=== PATIENT | female | born 1990 | race Caucasian/White ===

== ENCOUNTER 2018-10-24 22:51 | Emergency (ER) | payer OTHER ==
[~2018-10-24] VITALS: Ht 162.6 cm; Wt 49.9 kg
[~2018-10-24 22:51] MED LIST: PEPCID40 MG PO; ZOFRAN ODT4 MG PO
[2018-10-25] MEDS ORDERED: KETO10TA2 PO (01:09)
[2018-10-25] MEDS ORDERED: AMOX-CLAV 875-1 EACH PO (01:09)
[2018-10-25] MEDS ORDERED: ORPHENADRINE C100 MG PO (01:09)
== END 2018-10-25 01:36 | disposition home or self-care (01) ==
LOC: ER 22:51
DX: M62.838 Other muscle spasm (principal); J31.2 Chronic pharyngitis

== ENCOUNTER → 2019-05-05 | Emergency (ER) | payer OTHER ==
[~2019-05-05] VITALS: Ht 157.5 cm; Wt 50.8 kg
[~2019-05-05] MED LIST changes: +AMOX-CLAV 875-1 EACH PO; +ANTICONCEPTIVAS; +CARAFATE1 GM PO; +KETO10TA2 PO; +ORPHENADRINE C100 MG PO; +PEPCID AC20 MG PO
== END | disposition home or self-care (01) ==
LOC: ER 21:29
DX: K29.70 Gastritis, unspecified, without bleeding (principal)

== ENCOUNTER 2020-10-10 09:25 | Emergency (ER) | payer OTHER ==
[~2020-10-10] VITALS: Ht 165.1 cm; Wt 51.3 kg
== END 2020-10-10 10:53 | disposition home or self-care (01) ==
LOC: ER 09:25
DX: R51.9 Headache, unspecified (principal); F41.8 Other specified anxiety disorders

== ENCOUNTER 2022-05-03 09:26 | Inpatient (IN) | payer OTHER ==
[~2022-05-03] VITALS: Ht 162.6 cm; Wt 3.6 kg
[2022-05-04] MEDS ORDERED: PROFERRIN-FORT1 EACH (11:34)
== END 2022-05-06 14:49 | disposition home or self-care (01) | DRG 788 ==
LOC: LDR 09:26 → OB/GYN 09:26
PROVIDERS: ADMIT Obstetrics & Gynecology; ATTEND Obstetrics & Gynecology
PROC: 4A1HXCZ Monitoring of Products of Conception, Cardiac Rate, External Approach (ICD-10-PCS; 2022-05-03)
PROC: 10D00Z1 Extraction of Products of Conception, Low, Open Approach (ICD-10-PCS; principal; 2022-05-03 13:45)
DX: O32.8XX0 Maternal care for other malpresentation of fetus, not applicable or unspecified (principal); Z3A.39 39 weeks gestation of pregnancy; Z37.0 Single live birth; Z20.822 Contact with and (suspected) exposure to COVID-19

== ENCOUNTER 2022-05-12 23:26 | Emergency (ER) | payer OTHER ==
[~2022-05-12] VITALS: Ht 236.2 cm; Wt 67.6 kg
[~2022-05-12 23:26] MED LIST changes: +PROFERRIN-FORT1 EACH
[2022-05-13] MEDS ORDERED: AMOX1TAB5 PO (04:45)
[2022-05-13] MEDS ORDERED: INTESTINEX680 M1 PO (04:45)
[2022-05-13] MEDS ORDERED: PAIN RELIEVER500 MG PO (04:45)
[2022-05-13] MEDS ORDERED: PEPCID AC20 MG PO (04:45)
== END 2022-05-13 05:18 | disposition home or self-care (01) ==
LOC: ER 23:26
DX: N73.9 Female pelvic inflammatory disease, unspecified (principal); L76.82 Other postprocedural complications of skin and subcutaneous tissue; O90.9 Complication of the puerperium, unspecified

== ENCOUNTER 2023-08-16 21:30 | Emergency (ER) | payer OTHER ==
[~2023-08-16] VITALS: Ht 160 cm; Wt 51.7 kg
[~2023-08-16 21:30] MED LIST changes: +AMOX1TAB5 PO; +INTESTINEX680 M1 PO; +PAIN RELIEVER500 MG PO
[2023-08-16] MEDS ORDERED: CAMILA0.35 MG (22:17)
[2023-08-16] MEDS ORDERED: 0.9 % SODIUM CHLORIDE 1,000 ML IV SCH (23:00)
[2023-08-16 23:57] LABS: HEMATOCRIT 37.5 % (36.0-45.00); HEMOGLOBIN 12.9 g/dL (12.0-15.00); MEAN CORPUSCULAR HEMOGLOBIN 29.5 pg (27.00-32.0); MEAN CORPUSCULAR HGB CONC 34.3 g/dl (32.0-36.0); PLATELET COUNT 237 K/uL (150-450); RED BLOOD COUNT 4.36 M/uL (4.00-6.00); RED CELL DISTRIBUTION WIDTH 12.7 % (11.5-14.5)
[2023-08-17 00:17] LABS: ALBUMIN 3.7 gm/dL (3.4-5.0); BILIRUBIN TOTAL 0.3 mg/dL (0.3-1.2); CALCIUM 9.4 mg/dL (8.5-10.1); CREATININE SERUM 0.59 mg/dL (0.55-1.02); GFR 118.88; GLOBULINA 3.3 G/DL (2.4-3.5); POTASSIUM 3.85 mEq/L (3.5-5.1)
== END 2023-08-17 03:07 | disposition home or self-care (01) ==
LOC: ER 21:30
PROVIDERS: General Practice
DX: R10.2 Pelvic and perineal pain (principal); Z91.018 Allergy to other foods; N83.202 Unspecified ovarian cyst, left side; N20.0 Calculus of kidney

== ENCOUNTER 2024-04-05 06:41 | Emergency (ER) | payer OTHER ==
[~2024-04-05] VITALS: Ht 160 cm; Wt 51.7 kg
[~2024-04-05 06:41] MED LIST changes: +CAMILA0.35 MG
[2024-04-05 08:29] LABS: URINE APPEARANCE Clear; URINE BILIRRUBIN Negative (NEGATIVE); URINE BLOOD Negative; URINE COLOR Yellow; URINE GLUCOSE Negative (NEGATIVE); URINE KETONE Negative (NEGATIVE); URINE LEUKOCYTE Negative; URINE NITRATE Negative; URINE PROTEIN Negative (NEGATIVE); URINE UROBILINOGEN 0.2 E.U./dl
[2024-04-05 08:32] LABS: URINE BACTERIA 124.7 uL (0.0-1933); URINE EPITHELIAL CELLS 15.1 uL (0.0-38.8); URINE RBC 36.7 uL (0.0-20.8); URINE WBC 12.6 uL (0.0-23.2)
[2024-04-05 08:40] LABS: HEMOGLOBIN 13.9 g/dL (12.0-15.00); MEAN CELL VOLUME 87.2 fL (80.00-100.00); MEAN CORPUSCULAR HEMOGLOBIN 29.5 pg (27.00-32.0); MEAN CORPUSCULAR HGB CONC 33.9 g/dl (32.0-36.0); PLATELET COUNT 225 K/uL (150-450)
[2024-04-05 08:53] LABS: ALBUMIN 4.1 gm/dL (3.4-5.0); ALKALINE PHOSPHATASE 48 U/L (50-136); ALT/SGPT 25 U/L (12-78); ANION GAP 9 (10.0-20.0); AST/SGOT 18 U/L (15-37); BILIRUBIN TOTAL 0.24 mg/dL (0.3-1.2); BLOOD UREA NITROGEN 21 mg/dL (7-18); BUN CREA RATIO 33 (7.0-25.0); CALCIUM 9.2 mg/dL (8.5-10.1); CARBON DIOXIDE 27 mEq/L (21-32); CHLORIDE 110 mmol/L (98-107); CREATININE SERUM 0.64 mg/dL (0.55-1.02); GFR 107.54; GLOBULINA 3.6 G/DL (2.4-3.5); GLUCOSE FASTING 98 mg/dL (65-100); OSMOLALITY SERUM 286 MOSM/KG (275-295); SODIUM 142 mmol/L (136-145); TOTAL PROTEIN 7.7 gm/dL (6.4-8.2)
[2024-04-05 08:57] LABS: HCG QUANTITATIVE < 1 mUI/mL (1-3)
[2024-04-05 09:34] LABS: URINE CAST 0.15 uL (0.0-1.40)
== END 2024-04-05 09:53 | disposition home or self-care (01) ==
LOC: ER 06:43
PROVIDERS: General Practice
DX: N83.202 Unspecified ovarian cyst, left side (principal); R10.2 Pelvic and perineal pain; Z91.018 Allergy to other foods

== ENCOUNTER 2024-10-01 16:36 | Emergency (ER) | payer OTHER ==
[~2024-10-01] VITALS: Ht 162.6 cm; Wt 53.5 kg
[2024-10-01] MEDS ORDERED: DEXAMETHASONE SODIUM PHOSPHATE 4 MG/ML VIAL IM ONE (19:45)
[2024-10-01] MEDS ORDERED: DEXAMETHASONE SODIUM PHOSPHATE 4 MG/ML VIAL ONE (19:53)
[2024-10-01 20:08] LABS: HEMATOCRIT 41.1 % (36.0-45.00); HEMOGLOBIN 13.7 g/dL (12.0-15.00); MEAN CELL VOLUME 86.6 fL (80.00-100.00); MEAN CORPUSCULAR HEMOGLOBIN 28.8 pg (27.00-32.0); MEAN CORPUSCULAR HGB CONC 33.3 g/dl (32.0-36.0); PLATELET COUNT 229 K/uL (150-450); RED BLOOD COUNT 4.75 M/uL (4.00-6.00); RED CELL DISTRIBUTION WIDTH 12.6 % (11.5-14.5)
[2024-10-01] MEDS ORDERED: AMOX-CLAV 875-1 EAC1 PO (21:46)
[2024-10-01] MEDS ORDERED: NASONEX 24HR AL17 ML NASAL (21:46)
[2024-10-01] MEDS ORDERED: KETOROLAC TROMETHAMINE 10 MG TABLET PO ONE ×2 (22:00→22:02)
[2024-10-01] MEDS ORDERED: CEFTRIAXONE SODIUM 1,000 MG VIAL IM ONE (22:00)
[2024-10-01] MEDS ORDERED: CEFTRIAXONE SODIUM 1,000 MG VIAL ONE (22:02)
== END 2024-10-01 22:10 | disposition home or self-care (01) ==
LOC: ER 16:37
PROVIDERS: Preventive Medicine Public Health & General Preventive Medicine
DX: J32.9 Chronic sinusitis, unspecified (principal); J34.89 Other specified disorders of nose and nasal sinuses; Z91.018 Allergy to other foods

== ENCOUNTER 2024-10-24 22:11 | Emergency (ER) | payer OTHER ==
[~2024-10-24] VITALS: Ht 160 cm; Wt 54.4 kg
[~2024-10-24 22:11] MED LIST changes: +AMOX-CLAV 875-1 EAC1 PO; +NASONEX 24HR AL17 ML NASAL
[2024-10-24] MEDS ORDERED: KETOROLAC TROMETHAMINE 30 MG IU ONE (23:00)
[2024-10-24] MEDS ORDERED: DEXAMETHASONE SODIUM PHOSPHATE 4 MG/ML VIAL IV ONE (23:00)
[2024-10-24] MEDS ORDERED: DEXAMETHASONE SODIUM PHOSPHATE 4 MG/ML VIAL ONE (23:09)
[2024-10-24] MEDS ORDERED: KETOROLAC TROMETHAMINE 30 MG VIAL ONE (23:09)
[2024-10-24] MEDS ORDERED: KETOROLAC TROMETHAMINE 30 MG VIAL IV ONE (23:30)
[2024-10-24 23:32] LABS: BASO % 0.5 % (0.1-1.2); EOS # 0.23 (0.04-0.54); EOS % 3.8 % (0.7-7.0); HEMATOCRIT 35.1 % (34.1-44.9); HEMOGLOBIN 12.4 g/dL (11.2-15.7); LYMPH # 1.95 (1.18-3.74); LYMPH % 32.1 % (19.3-53.1); MEAN CORPUSCULAR HEMOGLOBIN 29.2 pg (25.6-32.2); MONO # 0.66 (0.24-0.82); MONO % 10.9 % (4.7-12.5); NEUT # 3.19 (1.56-6.13); NEUT % 52.5 % (34.0-71.1); PLATELET COUNT 211 K/uL (163-369); RED BLOOD COUNT 4.24 M/uL (3.93-5.22); RED CELL DISTRIBUTION WIDTH 12.2 % (11.6-14.4)
== END 2024-10-25 00:19 | disposition home or self-care (01) ==
LOC: ER 22:29
PROVIDERS: General Practice
DX: R51.9 Headache, unspecified (principal); Z91.018 Allergy to other foods